=== PATIENT | female | born 1980 | race Caucasian/White ===

== ENCOUNTER 2024-04-20 05:07 | Emergency (ER) | payer BC, OTHER ==
[2024-04-20] MEDS ORDERED: Sodium Chloride 0.9% 10 ML Syringe FLUSH PRN (05:29)
[2024-04-20 06:00] LABS: BASOPHILS ABSOLUTE AUTO 0.1 K/mm3 (0.0-0.2); BASOPHILS PERCENT AUTO 0.5 % (0.0-1.0); EOSINOPHILS ABSOLUTE AUTO 0.1 K/mm3 (0.0-0.4); EOSINOPHILS PERCENT AUTO 0.7 % (0.0-6.0); HEMATOCRIT 43.4 % (37.0-47.0); HEMOGLOBIN 14.8 gm/dl (12.0-16.0); IMMATURE GRAN ABSOLUTE AUTO 0.04 K/mm3 (0.00-0.05); IMMATURE GRAN PERCENT AUTO 0.4 % (0.0-0.4); LYMPHOCYTES ABSOLUTE AUTO 1.1 K/mm3 (1.0-4.8); LYMPHOCYTES PERCENT AUTO 9.8 % (24.0-44.0); MEAN CORPUSCULAR HEMOGLOBIN 30.6 pg (28.0-32.0); MEAN CORPUSCULAR HGB CONC 34.1 g/dl (32.0-36.0); MEAN CORPUSCULAR VOLUME 89.7 fl (83.0-99.0); MEAN PLATELET VOLUME 9.4 fl (9.4-12.3); MONOCYTES ABSOLUTE AUTO 0.4 K/mm3 (0.0-0.8); MONOCYTES PERCENT AUTO 3.9 % (0.0-8.0); NEUTROPHILS ABSOLUTE AUTO 9.1 K/mm3 (1.8-7.7); NEUTROPHILS PERCENT AUTO 84.7 % (41.0-71.0); PLATELET COUNT,PLT 264 K/mm3 (150-400); RED BLOOD CELL COUNT 4.84 M/mm3 (4.10-5.30); WHITE BLOOD CELL COUNT,WBC 10.72 K/mm3 (3.9-11.3)
[2024-04-20] MEDS ORDERED: Naloxone 0.4 MG/ML SDV IVPUSH PRN (06:07)
[2024-04-20 06:17] LABS: ALBUMIN 3.8 g/dl (3.4-5.0); ANION GAP 16.4 (5-15); BILIRUBIN TOTAL 0.7 mg/dL (0.2-1.0); BUN/CREATININE RATIO 12.7 (14-18); CALCIUM 9.3 mg/dL (8.5-10.1); CREATININE 1.1 mg/dL (0.55-1.02); EST CRCL DRUG DOSING (CG) 49.76 mL/min; POTASSIUM,K 3.4 mEq/L (3.5-5.1); PROTEIN TOTAL,TP 7.5 g/dl (6.4-8.2)
[2024-04-20 06:20] LABS: LACTIC ACID 0.6 mmol/L (0.4-2.0)
[2024-04-20] MEDS: Morphine 4 MG/ML Syringe IVPUSH ONE (06:21)
[2024-04-20] MEDS: Ondansetron 4 MG/2 ML SDV IVPUSH ONE (06:23)
[2024-04-20] MEDS: Iopamidol 612 MG/ML 100 ML Bottle IVPUSH ONE (06:42)
[2024-04-20 07:54] LABS: APPEARANCE,URINE CLEAR (Clear); BILIRUBIN,URINE NEGATIVE (Negative); COLOR,URINE YELLOW (Yellow); GLUCOSE,URINE NEGATIVE (Negative); KETONES,URINE 3+ (Negative); LEUKOCYTE ESTERASE,URINE NEGATIVE (Negative); NITRITE,URINE NEGATIVE (Negative); OCCULT BLOOD,URINE 2+ (Negative); PROTEIN,URINE NEGATIVE (Negative); UROBILINOGEN,URINE 0.2 (0.2-1.0)
[2024-04-20 08:09] LABS: BACTERIA,URINE RARE /hpf (FEW); MUCUS,URINE NOT SEEN /hpf (FEW); RBC,URINE 0-5 /hpf (0-5); WBC,URINE 0-5 /hpf (0-5)
[2024-04-20] MEDS: Tamsulosin 0.4 MG Cap.ER PO ONE (09:54)
[2024-04-20] MEDS: Ketorolac 30 MG/ML SDV IVPUSH ONE (09:54)
[2024-04-20 10:23] VITALS: BP 120/71; PULSE 90
== END 2024-04-20 10:14 | disposition home or self-care (01) ==
LOC: JD.ED 05:07
DX: N13.2 Hydronephrosis with renal and ureteral calculous obstruction (principal); E66.9 Obesity, unspecified; Z79.899 Other long term (current) drug therapy; Z88.0 Allergy status to penicillin; Z86.16 Personal history of COVID-19; Z68.32 Body mass index [BMI] 32.0-32.9, adult
CPT/HCPCS: 36415; 74177; 80053; 81001; 83605; 83690; 83735; 84703; 85025; 96374; 96375; 99284; A9270; J1885; J2270; J2405; Q9967